=== PATIENT | male | born 1970 ===

== ENCOUNTER 2018-02-07 17:45 | Observation (INO) ==
[2018-02-07] MEDS ORDERED: ONDANSETRON 4 MG/2 ML VIAL IV STA (19:24)
[2018-02-07] MEDS ORDERED: fentaNYL 100 MCG/2 ML VIAL IV STA (19:24)
[2018-02-07] MEDS ORDERED: ACETAMINOPHEN 325 MG TABLET PO PRN (20:49)
[2018-02-07] MEDS ORDERED: ONDANSETRON 4 MG/2 ML VIAL IV PRN (20:49)
[2018-02-07] MEDS ORDERED: HYDROmorphone 2 MG/1 ML VIAL IV PRN (20:49)
[2018-02-07] MEDS: DEXTROSE 5% LACTATED RINGERS 1,000 ML IV SCH (22:30)
[2018-02-08 06:56] LABS: Basophils % 0.1 % (0.0-0.8); Eosinophils % 0.1 % (0.00-10.9); Hemoglobin 10.7 GM/DL (14.0-18.0); Immature Granulocytes % 0.5 %; Immature Granulocytes Absolute 0.08 #; Lymphocytes % 6.4 % (21.2-54.2); Mean Corpuscular HGB Conc 33.4 GM/DL (32-36); Mean Corpuscular Hemoglobin 29 PG (27-34); Mean Corpuscular Volume 86.7 FL (87-102); Mean Platelet Volume 10.4 FL (9.6-12.0); Monocytes # 1.4 10*3/uL (0.11-0.8); Monocytes % 9.1 % (1.7-12.7); Neutrophils # 13.1 10*3/uL (1.4-7.4); Neutrophils % 83.8 % (38.7-73.9); Platelet Count 267 T/CUMM (130-400); Red Blood Count 3.69 MC/CUMM (3.8-5.5); Red Cell Distribution Width 13.2 % (9.3-17.3); White Blood Count 15.6 T/CUMM (4-12)
[2018-02-08 07:26] LABS: Albumin 2.9 G/DL (3.4-5.0); Calcium 8.3 MG/DL (8.5-10.1); Osmolality,Calculated 288.7 MOS/KG (273-304); Potassium 4.1 MMOL/L (3.5-5.1); Total Protein 7.2 G/DL (6.4-8.3)
[2018-02-08] MEDS ORDERED: cefOXitin 2,000 MG in SYRINGE 1 EACH IV ONE (08:20)
[2018-02-08] MEDS ORDERED: BUPIVACAINE 0.25% /EPI 10 ML VIAL ONE (09:09)
[2018-02-08] MEDS ORDERED: TISSUE ADHESIVE 1 EACH APPLICATOR TOP ONE (09:09)
[2018-02-08] MEDS ORDERED: LIDOCAINE 1%/EPI INJ 20 ML VIAL ONE (09:09)
[2018-02-08] MEDS: PANTOPRAZOLE 40 MG TABLET PO SCH (10:03)
[2018-02-08] MEDS ORDERED: SUGAMMADEX 200 MG/2 ML VIAL IV ONE (10:21)
[2018-02-08] MEDS ORDERED: DEXTROSE 50% 25 GM/50 ML VIAL IV PRN (10:30)
[2018-02-08] MEDS ORDERED: GLUCAGON 1 MG VIAL IM PRN (10:30)
[2018-02-08] MEDS: DEXTROSE 5% LACTATED RINGERS 1,000 ML IV SCH ×2 (12:11→14:25)
[2018-02-08] MEDS: INSULIN REGULAR 100 UNIT/ML SUBCUT SCH ×3 (12:25→20:34)
[2018-02-08] MEDS: PIPERACILLIN/TAZOBACTAM 3,375 MG in SODIUM CHLORIDE 0.9% 100 ML IV SCH ×2 (12:26→18:31)
[2018-02-08] MEDS ORDERED: ROCURONIUM 100 MG/10 ML VIAL IV ONE (13:16)
[2018-02-08] MEDS ORDERED: SEVOFLURANE 1 UNIT/15 MINUTE INH ONE (13:16)
[2018-02-08] MEDS ORDERED: ONDANSETRON 4 MG/2 ML VIAL ONE (13:16)
[2018-02-08] MEDS ORDERED: MIDAZOLAM 2 MG/2 ML VIAL ONE (13:16)
[2018-02-08] MEDS ORDERED: fentaNYL 100 MCG/2 ML VIAL ONE (13:16)
[2018-02-08] MEDS ORDERED: PROPOFOL 200 MG/20 ML VIAL IV ONE (13:16)
[2018-02-08] MEDS ORDERED: SUCCINYLCHOLINE 200 MG/10 ML VIAL ONE (13:16)
[2018-02-08] MEDS: KETOROLAC 15 MG/1 ML VIAL IV PRN (19:00)
[2018-02-09] MEDS: DEXTROSE 5% LACTATED RINGERS 1,000 ML IV SCH ×2 (01:39→06:20)
[2018-02-09] MEDS: PIPERACILLIN/TAZOBACTAM 3,375 MG in SODIUM CHLORIDE 0.9% 100 ML IV SCH ×3 (03:49→20:39)
[2018-02-09 06:36] LABS: Basophils % 0.2 % (0.0-0.8); Eosinophils # 0.2 10*3/uL (0.0-0.87); Eosinophils % 2.1 % (0.00-10.9); Hematocrit 28.6 VOL% (42.0-52.0); Hemoglobin 9.4 GM/DL (14.0-18.0); Immature Granulocytes % 0.3 %; Immature Granulocytes Absolute 0.03 #; Lymphocytes # 1.9 10*3/uL (1.4-4.0); Lymphocytes % 18.1 % (21.2-54.2); Mean Corpuscular HGB Conc 32.9 GM/DL (32-36); Mean Corpuscular Hemoglobin 29 PG (27-34); Mean Corpuscular Volume 88.5 FL (87-102); Mean Platelet Volume 10.6 FL (9.6-12.0); Monocytes % 9.5 % (1.7-12.7); Neutrophils # 7.4 10*3/uL (1.4-7.4); Neutrophils % 69.8 % (38.7-73.9); Platelet Count 228 T/CUMM (130-400); Red Blood Count 3.23 MC/CUMM (3.8-5.5); Red Cell Distribution Width 13.2 % (9.3-17.3); White Blood Count 10.5 T/CUMM (4-12)
[2018-02-09 06:56] LABS: Albumin 2.6 G/DL (3.4-5.0); Bilirubin,Total 0.4 MG/DL (0.2-1.0); Calcium 7.8 MG/DL (8.5-10.1); Osmolality,Calculated 288.1 MOS/KG (273-304); Potassium 3.8 MMOL/L (3.5-5.1); Total Protein 6.4 G/DL (6.4-8.3)
[2018-02-09] MEDS: INSULIN REGULAR 100 UNIT/ML SUBCUT SCH ×4 (07:59→20:38)
[2018-02-09] MEDS: PANTOPRAZOLE 40 MG TABLET PO SCH ×2 (08:39→20:38)
[2018-02-09] MEDS: KETOROLAC 15 MG/1 ML VIAL IV PRN (20:40)
[2018-02-10] MEDS: PIPERACILLIN/TAZOBACTAM 3,375 MG in SODIUM CHLORIDE 0.9% 100 ML IV SCH ×2 (03:13→11:38)
[2018-02-10 04:18] LABS: Basophils % 0.3 % (0.0-0.8); Eosinophils # 0.5 10*3/uL (0.0-0.87); Eosinophils % 6.4 % (0.00-10.9); Hematocrit 28.9 VOL% (42.0-52.0); Hemoglobin 9.5 GM/DL (14.0-18.0); Immature Granulocytes % 0.3 %; Immature Granulocytes Absolute 0.02 #; Lymphocytes # 2.2 10*3/uL (1.4-4.0); Lymphocytes % 30.4 % (21.2-54.2); Mean Corpuscular HGB Conc 32.9 GM/DL (32-36); Mean Corpuscular Hemoglobin 29 PG (27-34); Mean Corpuscular Volume 86.8 FL (87-102); Mean Platelet Volume 9.9 FL (9.6-12.0); Monocytes # 0.7 10*3/uL (0.11-0.8); Monocytes % 9.3 % (1.7-12.7); Neutrophils # 3.8 10*3/uL (1.4-7.4); Neutrophils % 53.3 % (38.7-73.9); Platelet Count 256 T/CUMM (130-400); Red Blood Count 3.33 MC/CUMM (3.8-5.5); Red Cell Distribution Width 12.9 % (9.3-17.3); White Blood Count 7.2 T/CUMM (4-12)
[2018-02-10] MEDS: INSULIN REGULAR 100 UNIT/ML SUBCUT SCH ×3 (08:52→17:01)
[2018-02-10] MEDS: PANTOPRAZOLE 40 MG TABLET PO SCH (09:00)
[2018-02-10] MEDS ORDERED: LIDOCAINE 100 MG/5 ML SYRINGE ONE (13:11)
[2018-02-10] MEDS ORDERED: PROPOFOL 200 MG/20 ML VIAL IV ONE (13:11)
[2018-02-10] MEDS: KETOROLAC 15 MG/1 ML VIAL IV PRN (15:27)
[2018-02-10 16:13] VITALS: BP 149/89
== END 2018-02-10 17:30 | disposition home or self-care (01) ==
LOC: N.ED 17:45 → N.EDINP 17:45 → N.3E 21:41
PROVIDERS: ADMIT Surgery; ATTEND Surgery
PROC: LAPCHOL (2018-02-08 09:21)